=== PATIENT | female | born 1985 | race Caucasian/White ===

== ENCOUNTER 2022-07-05 17:46 | Emergency (ER) | payer OTHER, SELFPAY ==
--- NOTE | ~2022-07-05 | XR_ITS ---
EXAM: XR shoulder RT min 2V DATE: 07/05/2022 18:19 HISTORY: Pain after working out yesterday. Full ROM . COMPARISON: None available. FINDINGS: Normal mineralization. No fracture or dislocation. No lytic or blastic lesion. Mild degene rative change in the right AC joint. No erosion or periosteal change. Soft tissues within normal limi ts. IMPRESSION: No acute osseous finding in the right shoulder. Reviewed, dictated and finalized at location K.
[2022-07-05 18:02] VITALS: BP 113/53; PULSE 76; RESP 16; TEMP 36.6; O2SAT 100
--- NOTE | 2022-07-05 18:08 | ED.UPPEXIN ---
HPI - Extremity Injury (Upper) General Chief Complaint: Extremity Injury, Upper Stated Complaint: rt shoulder injury Source: patient and RN notes reviewed History of Present Illness HPI narrative: 37-year-old female presents urgent care with complaints of right shoulder pain. Patient states last night she was working out when she 1st noticed this pain. Patient presents with a bump to her superior right shoulder that is tender with palpation. Patient has full range of motion with her shoulder. Patient denies any numbness or tingling. Patient denies any fevers, chills, chest pain or shortness of breath. Some parts of this dictation were generated by voice recognition software and may contain typographical and/or grammatical inaccuracies. Related Data Home Medications Medication Instructions Recorded Confirmed budesonide 180 mcg/actuation 180 mcg inhalation 07/05/22 breath activated powder inhaler (Pulmicort Flexhaler) Allergies Allergy/AdvReac Type Severity Reaction Status Date / Time Sulfa (Sulfonamide Allergy Unknown Redness of Verified 07/05/22 18:16 Antibiotics) Skin Review of Systems Review of Systems: Pertinent positives and pertinent negatives per HPI. [facility] Family History Family History (Updated 12/12/13 @ 07:13 by DOCTOR UNKNOWN) Mother Hypertension Social History Social History Smoking status: Never smoker Alcohol intake: current Comments At the time of my signature, I reviewed and agree with the nursing past medical, surgical, social, and family history. There is no relevant family history pertinent to the patient complaint. Exam Narrative: GENERAL: This is a well-nourished, well-developed patient, in no apparent distress. HEAD: normocephalic, atraumatic. EYES: PERRL. Sclera clear/white. Vision is grossly intact. EARS: External ears normal, auditory canals clear and without drainage, TMs normal without perforation. Hearing grossly intact. NOSE: External nose normal with no obvious nasal discharge, nares without redness, no rhinorrhea. THROAT: Mucous membranes moist, posterior pharynx clear. NECK: Neck supple, non-tender without lymphadenopathy, masses or thyromegaly. CARDIOVASCULAR: Regular rate RESPIRATORY: no respiratory distress SKIN: warm, intact with no suspicious lesions or rash, good texture and turgor. NEURO: awake, alert, and oriented to person, place and time. There were no obvious focal neurologic abnormalities. EXTREMITIES: No clubbing, cyanosis, or edema. No joint tenderness, effusion, or edema noted. 1 cm knot noted to right superior shoulder, tender to the touch. Course Course Level of Care: Express Care Visit Vital Signs Vital signs: Vital Signs Temperature 98 F 07/05/22 18:02 Pulse Rate 76 07/05/22 18:02 Respiratory Rate 16 07/05/22 18:02 Blood Pressure 113/53 L 07/05/22 18:02 Pulse Oximetry 100 07/05/22 18:02 Oxygen Delivery Room Air 07/05/22 18:02 Temperature 98 F 07/05/22 18:02 Pulse Rate 76 07/05/22 18:02 Respiratory Rate 16 07/05/22 18:02 Blood Pressure 113/53 L 07/05/22 18:02 Pulse Oximetry 100 07/05/22 18:02 Oxygen Delivery Room Air 07/05/22 18:02 reviewed MDM - Extremity Injury (Upper) MDM Narrative Medical decision making narrative: Apply ice and rest your extremity. May take ibuprofen and/or Tylenol if needed. If symptoms persist in 1 week after conservative treatment, follow-up with the orthopedic mechanic. Differential Diagnosis Differential diagnosis: Likely dislocation of shoulder, fracture of clavicle and other (sprain) Imaging Data Radiologist's impression: [facility] [address] [facility] [place], [place] [id number] XRay Report Signed Patient: Ena Caraballo : 1985 MR#: [id number] Age/Sex: 37 / F Acct:[id number] Loc: [facility]? ? ADM Date: 07/05/22Attending Dr: Ordering Physician: Anisa Correia APRN Date
== END 2022-07-05 19:05 | disposition home or self-care (01) ==
PROVIDERS: Emergency Provider Nurse Practitioner Family; PCP Physician Assistant
DX: S43.401A Unspecified sprain of right shoulder joint, initial encounter (principal); X58.XXXA Exposure to other specified factors, initial encounter
CPT/HCPCS: 73030; 99203; A4565; G0463